=== PATIENT | male | born 1930 | race Caucasian/White ===

== ENCOUNTER → 2017-02-12 07:58 | Outpatient (CLI) | payer MEDICARE ==
[2015-05-13 07:07] VITALS: BMI 22.8
[~2017-02-12 07:58] MED LIST: BAYER CHEWABLE81 MG PO; CARDIZEM CD180 MG PO; DEXILANT60 MG PO; HYDROCODONE-APA1 TAB PO; LANOXIN125 MCG PO; MULTIPLE VITAMI1 TA1 PO; PRADAXA150 MG PO; SAW PALMETTO450 MG PO; SYNTHROID50 MCG PO; VITAMIN D31000 UNIT PO
== END | disposition home or self-care (01) ==
LOC: D.US 07:58
DX: E80.6 Other disorders of bilirubin metabolism (principal)

== ENCOUNTER 2018-02-04 16:16 | Inpatient (IN) | payer MEDICARE, OTHER ==
[~2018-02-04] VITALS: Ht 172.7 cm; Wt 70.9 kg
--- NOTE | ~2018-02-04 | HP ---
PATIENT: SAIDA QUEEN MEDICAL RECORD: [id number] ACCOUNT: [id number] LOCATION:[address] : [birth year] ADMISSION DATE: 02/04/18 HISTORY AND PHYSICAL EXAMINATION HISTORY OF PRESENT ILLNESS: This is an 87-year-old gentleman who presented to the office with a 3-day history of some chills, fever. He has had difficulty with dribbling urine. His urine has been darker. He states he has had some incontinency, frequency. Had some nausea and vomiting yesterday. He on examination was found to have signs and symptoms consistent with a UTI with possible early sepsis. White count of 20,000 with a left shift. Temperature. Urinalysis with rbc's and wbc's as well as positive nitrites and leukocytes, he is admitted for IV antibiotics and fluid hydration as well as further workup. PAST MEDICAL HISTORY: Consistent for history of hypertension, history of hypothyroidism, atrial fibrillation, hyperlipidemia, chronic kidney disease stage I. HOME MEDICATIONS: Include aspirin 81 mg daily, atorvastatin 40 mg daily, Cartia XT 180 mg daily, digoxin 125 mcg half tab daily, levothyroxine 75 mcg daily, losartan 50 mg daily, Xarelto 15 mg daily. ALLERGIES: He has no known drug allergies. SOCIAL HISTORY: He does not smoke, use alcohol or drugs. He is . FAMILY HISTORY: Mother and sister with colon cancer. Father had bladder cancer. REVIEW OF SYSTEMS: CONSTITUTIONAL: He does complain of feeling a little bit tired and lethargic. Has had fever and some chills. HEENT: Denies any visual or auditory changes. No sore throat, rhinorrhea, or dysphagia. CARDIOPULMONARY: Denies any chest pain, palpitations, orthopnea. No cough, hemoptysis. No history of COPD or asthma. GASTROINTESTINAL: Denies abdominal pain. Has had some nausea. No diarrhea. GENITOURINARY: He had been incontinency and frequency, possible hematuria. He states the urine has been dark in color. Denies any dysuria. MUSCULOSKELETAL: Some aches diffusely, but no joint swelling or erythema. NEUROLOGIC: No history of CVA, syncope or seizure. PHYSICAL EXAMINATION: VITAL SIGNS: Blood pressure 110/56, pulse of 82, respirations 16, temperature 98.5. HEENT: PERRLA, EOMI. Pharynx clear. NECK: Supple. No JVD or adenopathy. HEART: S1, S2, irregularly irregular with no murmurs or rubs. LUNGS: Clear with no rhonchi, rales or wheezing. ABDOMEN: Soft, nontender, nondistended, normoactive bowel sounds. No organomegaly. EXTREMITIES: No peripheral edema. He had a little bit of tenderness in the flanks bilaterally to palpation. NEUROLOGICAL: Grossly intact. No focal deficits. HISTORY AND PHYSICAL [id number] SAIDA QUEEN LABORATORY DATA: White count was 20,000 with an H&H of 14 and 42 with left shift. Urinalysis had 1+ ketones with elevated specific gravity, positive nitrites, positive leukocyte. He had 15 to 20 wbc's and 20 to 25 rbc's per high-power field with 2+ bacteria. ASSESSMENT AND PLAN: Urinary tract infection with early sepsis. We are going to start him on IV Rocephin and fluid hydration. We are going to faith culture including chest x-ray, UA and culture, blood cultures. We are going to obtain a CT abdomen and pelvis without contrast and continue to follow clinically. TRANSINT:[id number] Voice Confirmation ID: [id number] DOCUMENT ID: [id number] HEIDY GREGG DO at 0715 CC: [id number] DICTATION DATE: 02/04/18 1607 BRAIDED RUG MAKER: 02/04/18 1634 ADM IN [facility] [address] [id number]
[2018-02-04] MEDS ORDERED: XARELTO15 MG PO (17:26)
[2018-02-04] MEDS ORDERED: SYNTHROID75 MCG PO (17:27)
[2018-02-04] MEDS ORDERED: CARTIA XT180 MG PO (17:31)
[2018-02-04] MEDS ORDERED: COZAAR50 MG PO (17:31)
[2018-02-04 17:49] LABS: BASOPHILS 0.1 % (0-2); EOSINOPHILS 0 % (0-7); HEMATOCRIT 43.3 % (42.0-54.0); HEMOGLOBIN 15.2 g/dL (13.5-17.5); IMMATURE GRANULOCYTES 0.5 % (0-5); LYMPHOCYTES 10.5 % (15-50); MCHC 35.1 g/dL (31.0-37.0); MCV 99.8 fL (80.0-100.0); MEAN PLATELET VOLUME 10.1 fL (7.4-10.4); MONOCYTES 8.7 % (2-11); NEUTROPHILS 80.2 % (40-80); PLATELET COUNT 166 10x3/uL (130-400); RBC 4.34 10x6/uL (4.20-6.10); RDW 14.5 % (11.5-14.5); WBC 19.5 10x3/uL (4.8-10.8)
[2018-02-04 18:06] VITALS: BP 106/56; Ht 172.7 cm; Wt 70.9 kg
[2018-02-04 18:09] LABS: ALBUMIN 3.6 g/dL (3.4-5.0); ANION GAP 12.2 mmol/L (8-16); BILIRUBIN - TOTAL 2.9 mg/dL (0.2-1.3); CALCIUM 8.6 mg/dL (8.5-10.1); CARBON DIOXIDE 25.7 mmol/L (21.0-32.0); CREATININE - SERUM 2.1 mg/dL (0.6-1.3); POTASSIUM - SERUM 3.9 mmol/L (3.5-5.1); PROTEIN - SERUM 7.2 g/dL (6.4-8.2)
[2018-02-04 18:20] LABS: T4 THYROXIN - FREE 1.22 ng/dL (0.76-1.46); THYROID STIMULATING HORMONE 0.65 uIU/mL (0.36-3.74)
[2018-02-04 20:39] VITALS: BP 102/42
[2018-02-05 03:20] LABS: APPEARANCE CLOUDY (CLEAR); BILIRUBIN NEGATIVE (NEGATIVE); COLOR DK YELLOW (YELLOW); GLUCOSE NEGATIVE (NEGATIVE); KETONE NEGATIVE (NEGATIVE); NITRITE POSITIVE (NEGATIVE); PROTEIN 2+ mg/dL (NEGATIVE); UROBILINOGEN NORMAL (NORMAL)
[2018-02-05 03:22] LABS: BACTERIA MANY /hpf (NONE SEEN); EPITHELIAL CELLS 0-5 /hpf (0-5); MUCUS <1+ /lpf (NONE SEEN)
[2018-02-05 04:00] VITALS: BP 135/42
[2018-02-05 04:39] LABS: BASOPHILS 0.1 % (0-2); EOSINOPHILS 0.1 % (0-7); HEMATOCRIT 37.9 % (42.0-54.0); IMMATURE GRANULOCYTES 0.3 % (0-5); LYMPHOCYTES 17.3 % (15-50); MCHC 34.3 g/dL (31.0-37.0); MCV 99.2 fL (80.0-100.0); MEAN PLATELET VOLUME 9.9 fL (7.4-10.4); NEUTROPHILS 72.2 % (40-80); PLATELET COUNT 148 10x3/uL (130-400); RBC 3.82 10x6/uL (4.20-6.10); RDW 14.7 % (11.5-14.5); WBC 15.2 10x3/uL (4.8-10.8)
[2018-02-05 04:49] LABS: ANION GAP 8.1 mmol/L (8-16); CREATININE - SERUM 1.8 mg/dL (0.6-1.3); POTASSIUM - SERUM 4.1 mmol/L (3.5-5.1)
[2018-02-05 07:36] VITALS: BP 105/45
[2018-02-05 11:30] VITALS: BP 105/58
[2018-02-05 15:08] VITALS: BP 113/54
[2018-02-05 21:17] VITALS: BP 132/63
[2018-02-06 04:34] LABS: BASOPHILS 0.1 % (0-2); EOSINOPHILS 1.8 % (0-7); IMMATURE GRANULOCYTES 0.2 % (0-5); LYMPHOCYTES 17.5 % (15-50); MCH 33.9 pg (26.0-34.0); MCHC 34.2 g/dL (31.0-37.0); MEAN PLATELET VOLUME 10.1 fL (7.4-10.4); MONOCYTES 10.5 % (2-11); NEUTROPHILS 69.9 % (40-80); PLATELET COUNT 149 10x3/uL (130-400); RBC 3.84 10x6/uL (4.20-6.10); RDW 14.6 % (11.5-14.5)
[2018-02-06 04:41] LABS: WBC 8.6 10x3/uL (4.8-10.8)
[2018-02-06 04:48] LABS: BILIRUBIN - TOTAL 0.88 mg/dL (0.2-1.3); CALCIUM 7.6 mg/dL (8.5-10.1); CARBON DIOXIDE 26.2 mmol/L (21.0-32.0); CREATININE - SERUM 1.6 mg/dL (0.6-1.3); MAGNESIUM - SERUM 2.4 mg/dL (1.8-2.4); PHOSPHOROUS 2.4 mg/dL (2.5-4.9); POTASSIUM - SERUM 4.2 mmol/L (3.5-5.1); PROTEIN - SERUM 5.6 g/dL (6.4-8.2)
[2018-02-06 04:49] LABS: ALBUMIN 2.5 g/dL (3.4-5.0)
[2018-02-06 06:35] VITALS: BP 116/56
[2018-02-06 07:49] VITALS: BP 113/66
[2018-02-06 11:28] VITALS: BP 126/62
[2018-02-06 16:37] VITALS: BP 119/65
[2018-02-06 20:14] VITALS: BP 155/62
[2018-02-07] VITALS: BP 138/72
[2018-02-07 04:00] VITALS: BP 172/67
[2018-02-07 05:50] LABS: BASOPHILS 0.3 % (0-2); HEMATOCRIT 38.5 % (42.0-54.0); HEMOGLOBIN 13.2 g/dL (13.5-17.5); IMMATURE GRANULOCYTES 0.3 % (0-5); LYMPHOCYTES 28.3 % (15-50); MCH 34.3 pg (26.0-34.0); MCHC 34.3 g/dL (31.0-37.0); MONOCYTES 10.5 % (2-11); NEUTROPHILS 57.6 % (40-80); PLATELET COUNT 170 10x3/uL (130-400); RBC 3.85 10x6/uL (4.20-6.10); RDW 14.4 % (11.5-14.5)
[2018-02-07 05:51] LABS: WBC 6.4 10x3/uL (4.8-10.8)
[2018-02-07 06:23] LABS: ALBUMIN 2.7 g/dL (3.4-5.0); BILIRUBIN - TOTAL 0.76 mg/dL (0.2-1.3); CALCIUM 7.8 mg/dL (8.5-10.1); CARBON DIOXIDE 24.2 mmol/L (21.0-32.0); CREATININE - SERUM 1.7 mg/dL (0.6-1.3); MAGNESIUM - SERUM 2.3 mg/dL (1.8-2.4); PHOSPHOROUS 2.8 mg/dL (2.5-4.9); POTASSIUM - SERUM 4.2 mmol/L (3.5-5.1); PROTEIN - SERUM 5.8 g/dL (6.4-8.2)
[2018-02-07] MEDS ORDERED: FLOMAX0.4 MG PO (07:18)
[2018-02-07] MEDS ORDERED: CEFUROXIME250 MG PO (07:19)
[2018-02-07 08:13] VITALS: BP 139/65
== END 2018-02-07 10:30 | disposition home or self-care (01) | DRG 872 ==
LOC: D.M2 16:16
PROVIDERS: Family Medicine
DX: A41.9 Sepsis, unspecified organism (principal); N12 Tubulo-interstitial nephritis, not specified as acute or chronic; N17.9 Acute kidney failure, unspecified; I48.91 Unspecified atrial fibrillation; I12.9 Hypertensive chronic kidney disease with stage 1 through stage 4 chronic kidney disease, or unspecified chronic kidney disease; N18.1 Chronic kidney disease, stage 1; E03.9 Hypothyroidism, unspecified; E78.5 Hyperlipidemia, unspecified; K59.00 Constipation, unspecified

== ENCOUNTER → 2018-02-26 06:58 | Outpatient (CLI) | payer MEDICARE, OTHER ==
[2018-02-04 18:06] VITALS: BMI 23.6
[~2018-02-26 06:58] MED LIST changes: +CARTIA XT180 MG PO; +CEFUROXIME250 MG PO; +COZAAR50 MG PO; +FLOMAX0.4 MG PO; +SYNTHROID75 MCG PO; +XARELTO15 MG PO
== END | disposition home or self-care (01) ==
LOC: D.US 06:58
DX: R94.4 Abnormal results of kidney function studies (principal)

== ENCOUNTER → 2018-03-05 08:42 | Outpatient (CLI) | payer MEDICARE, OTHER ==
[2018-02-04 18:06] VITALS: BMI 23.6
== END | disposition home or self-care (01) ==
LOC: D.MRI 08:42
DX: N28.1 Cyst of kidney, acquired (principal)

== ENCOUNTER → 2018-08-13 15:31 | Outpatient (CLI) | payer MEDICARE ==
[2018-02-04 18:06] VITALS: BMI 23.6
== END | disposition home or self-care (01) ==
LOC: D.LABREF 15:31
PROVIDERS: ATTEND Orthopaedic Surgery
DX: M17.12 Unilateral primary osteoarthritis, left knee (principal)

== ENCOUNTER 2018-08-18 10:39 | Inpatient (IN) | payer MEDICARE ==
[~2018-08-18] VITALS: Ht 172.7 cm; Wt 73.5 kg
[2018-08-20] MEDS ORDERED: CENTRUM MEN'S1 EACH PO (11:19)
[2018-08-20] MEDS ORDERED: COUMADIN5 MG PO (11:21)
[2018-08-20] MEDS ORDERED: LIPITOR40 MG PO (11:22)
[2018-08-20 12:20] LABS: BASOPHILS 0.3 % (0-2); EOSINOPHILS 1.7 % (0-7); HEMATOCRIT 44.8 % (42.0-54.0); HEMOGLOBIN 15.5 g/dL (13.5-17.5); IMMATURE GRANULOCYTES 0.3 % (0-5); MCH 34.8 pg (26.0-34.0); MCHC 34.6 g/dL (31.0-37.0); MCV 100.4 fL (80.0-100.0); MONOCYTES 8.4 % (2-11); NEUTROPHILS 65.3 % (40-80); RBC 4.46 10x6/uL (4.20-6.10); RDW 14.8 % (11.5-14.5); WBC 8.6 10x3/uL (4.8-10.8)
[2018-08-20 12:21] LABS: PLATELET COUNT 217 10x3/uL (130-400)
[2018-08-20 12:36] LABS: ANION GAP 14.3 mmol/L (8-16); CALCIUM 8.9 mg/dL (8.5-10.1); CARBON DIOXIDE 26.9 mmol/L (21.0-32.0); CREATININE - SERUM 1.7 mg/dL (0.6-1.3); POTASSIUM - SERUM 4.2 mmol/L (3.5-5.1)
[2018-08-20 12:47] LABS: APTT 32.6 SECONDS (22.8-39.4); INR 2.09 (0.85-1.17); PROTIME 22.8 SECONDS (11.6-15.0)
[2018-08-20 13:03] LABS: APPEARANCE CLEAR (CLEAR); BILIRUBIN NEGATIVE (NEGATIVE); COLOR YELLOW (YELLOW); GLUCOSE NEGATIVE (NEGATIVE); KETONE NEGATIVE (NEGATIVE); NITRITE NEGATIVE (NEGATIVE); PROTEIN NEGATIVE (NEGATIVE); UROBILINOGEN NORMAL (NORMAL)
[2018-08-26 09:05] VITALS: BP 130/68; BMI 24.6
[2018-08-26 09:47] LABS: APTT 27.7 SECONDS (22.8-39.4); INR 1.1 (0.85-1.17); PROTIME 13.7 SECONDS (11.6-15.0)
--- NOTE | 2018-08-26 11:36 | NUR ---
PLASMA BLADE SET 6/8 BOVIE PAD RIGHT THIGH [id number] EXP 11/29/2019
[2018-08-26] MEDS ORDERED: HYDROCODON-ACE1 EAC2 PO (12:58)
[2018-08-26] MEDS ORDERED: KEFLEX500 MG PO (12:59)
[2018-08-26 14:08] VITALS: BP 138/90
[2018-08-26 16:30] VITALS: BP 110/57
[2018-08-26 19:15] VITALS: BP 138/90; BMI 24.6
--- NOTE | 2018-08-26 20:00 | NUR ---
ASSESSMENT PER FLOWSHEET. DRESSING TO LEFT KNEE C/D/I PT PLACED ON CPM. SR UP X2 CALL LIGHT WITHIN REACH. SCD LEFT LEG MARTA RT LEG. IV PATENT LEFT ARM OF 1/2NS AT 50CC'S/HR URINAL AT BEDSIDE. DENIES NEEDS.
[2018-08-26 21:05] VITALS: BP 119/58
--- NOTE | 2018-08-26 21:15 | NUR ---
MEDS GIVEN PER MAR.
--- NOTE | 2018-08-26 23:00 | NUR ---
CPM REMOVED FROM LEFT LEG. VOIDS IN URINAL.
--- NOTE | 2018-08-27 | NUR ---
EYES CLOSED RESPIRATIONS WITH EASE AND UNLABORED.
--- NOTE | 2018-08-27 03:04 | NUR ---
RESTING QUIETLY DENIES NEEDS. WILL CONTINUE PLAN OF CARE.
[2018-08-27 04:07] LABS: BASOPHILS 0 % (0-2); EOSINOPHILS 0 % (0-7); HEMOGLOBIN 12.7 g/dL (13.5-17.5); IMMATURE GRANULOCYTES 0.3 % (0-5); LYMPHOCYTES 7.4 % (15-50); MCH 33.9 pg (26.0-34.0); MCHC 34.3 g/dL (31.0-37.0); MCV 98.7 fL (80.0-100.0); MEAN PLATELET VOLUME 9.3 fL (7.4-10.4); MONOCYTES 6.3 % (2-11); PLATELET COUNT 178 10x3/uL (130-400); RBC 3.75 10x6/uL (4.20-6.10); RDW 14.2 % (11.5-14.5)
[2018-08-27 04:12] LABS: INR 1.13 (0.85-1.17)
[2018-08-27 04:20] LABS: ALBUMIN 2.9 g/dL (3.4-5.0); ANION GAP 15.2 mmol/L (8-16); BILIRUBIN - TOTAL 0.75 mg/dL (0.2-1.3); CALCIUM 8.2 mg/dL (8.5-10.1); CARBON DIOXIDE 24.1 mmol/L (21.0-32.0); CREATININE - SERUM 1.7 mg/dL (0.6-1.3); POTASSIUM - SERUM 4.3 mmol/L (3.5-5.1); PROTEIN - SERUM 6.3 g/dL (6.4-8.2)
[2018-08-27 04:43] VITALS: BP 105/72
--- NOTE | 2018-08-27 07:56 | NUR ---
PATIENT RESTING COMFORTABLY WITH CPM TO LEFT KNEE. NO COMPLAINTS OF PAIN. LEFT FOREARM PIV INFILTRATED; REMOVED, TIP INTACT.
--- NOTE | 2018-08-27 08:37 | NUR ---
20G PIV RESITED TO RIGHT FOREARM. ONE ATTEMPT. PATIENT TOERATED WELL.
[2018-08-27 08:55] VITALS: BP 128/88
[2018-08-27 11:52] VITALS: Ht 172.7 cm; Wt 73.5 kg
[2018-08-27 13:38] VITALS: BP 108/70
--- NOTE | 2018-08-27 13:46 | NUR ---
I have reviewed this patient and I concur with the Shift Assessment completed by the Licensed Practical Nurse today this shift.
--- NOTE | 2018-08-27 14:23 | MORECARE ---
CASE MANAGEMENT DISCHARGE SUMMARY PATIENT: SAIDA QUEEN UNIT: [id number] ADM DATE: 08/26/18 AGE: 88 : 31 SEX: M ROOM/BED: D.2217 AUTHOR: FIFI ARREOLA PHYSICIAN: REFERRING PHYSICIAN: SEBAS LOPEZ DO DATE OF SERVICE: 08/27/18 Discharge Plan Patient Name: SAIDA QUEEN [facility] [facility] 1930 Planned Disposition: Home Anticipated Discharge Date: Discharge Date: Expected LOS: Initial Reviewer: [email or web address] Initial Review Date: 08/26/2018 Generated: 08/27/18 3:22 pm Patient Name: SAIDA QUEEN Page 85538 at 1423 All edits/amendments must be made on the electronic document DICTATION DATE: 08/27/181421 STEEL RULE DIE MAKER APPRENTICE: SAMIR 08/27/181421 RPT#: [id number] DC DATE: STATUS: ADM IN [facility] [address] [place] [address] END OF REPORT
--- NOTE | 2018-08-27 14:33 | MORECARE ---
CASE MANAGEMENT DISCHARGE SUMMARY PATIENT: SAIDA QUEEN UNIT: [id number] ADM DATE: 08/26/18 AGE: 88 : 31 SEX: M ROOM/BED: D.2217 AUTHOR: ELBA,DOC PHYSICIAN: REFERRING PHYSICIAN: SEBAS LOPEZ DO DATE OF SERVICE: 08/27/18 Discharge Plan Patient Name: SAIDA QUEEN Facility: [facility]:[place] : 1930 Planned Disposition: Home Anticipated Discharge Date: Discharge Date: Expected LOS: Initial Reviewer: [email or web address] Initial Review Date: 08/26/2018 Generated: 08/27/18 3:32 pm Comments DCP- Discharge Planning Updated by [email or web address]: Kira Stephens on 08/27/18 1:[address] Patient Name: SAIDA QUEEN Admission Status: Elective Accout number: [id number] Admission Date: 08-26-2018 : 1930 Admission Diagnosis: Attending: SEBAS LOPEZ Current LOS: 1 Anticipated DC Date: Planned Disposition: Home Primary Insurance: MEDICARE A & B Discharge Planning Comments: CM met with patient to complete initial dc planning assessment. CM educated patient on the CM role and verbal consent given by patient to complete assessment. Patient lives at home with his where he is independent with his care at home. At discharge patient plans to return home and feels this is a safe discharge. CM discussed availability of home health, rehab services, and medical equipment. He stated that he will do OP PT at [facility]. He has a BSC and a walker that was delivered to his home. I will call and check on the CPM & schedule his OP PT appointment prior to discharge. CM will continue to follow and will assist as needed with dc plans/needs. Night Stocker: Kira Stephens DCPIA - Discharge Planning Initial Assessment Updated by [email or web address]: Kira Stephens on 08/27/18 2:25 pm * Is the patient Alert and Oriented? Yes * How many steps to enter\exit or inside your home? * PCP [facility] * Pharmacy [facility] * Preadmission Environment Home with Family * ADLs Independent * Equipment Bedside Commode Rolling Walker * List name and contact numbers for known caregivers / representatives who currently or will assist patient after discharge: ADRIENNE () [phone] * Verbal permission to speak to the caregivers and representatives has been obtained from the patient. Yes * Community resources currently utilized None * Additional services required to return to the preadmission environment? Yes * Can the patient safely return to the preadmission environment? Yes * Has this patient been hospitalized within the prior 30 days at any hospital? No Last DP export: 08/27/18 1:22 p Patient Name: SAIDA QUEEN Page 28308 at 1433 All edits/amendments must be made on the electronic document DICTATION DATE: 08/27/181431 ENVIRONMENTAL CONSERVATION OFFICER: SAMIR 08/27/181431 RPT#: [id number] DC DATE: STATUS: ADM IN [facility] [address] [place] [address] END OF REPORT
--- NOTE | 2018-08-27 14:42 | MORECARE ---
CASE MANAGEMENT DISCHARGE SUMMARY PATIENT: SAIDA QUEEN UNIT: [id number] ADM DATE: 08/26/18 AGE: 88 : 31 SEX: M ROOM/BED: D.2217 AUTHOR: ELBA,DOC PHYSICIAN: REFERRING PHYSICIAN: NILES LOPEZ DO DATE OF SERVICE: 08/27/18 Discharge Plan Patient Name: SAIDA QUEEN Facility: [facility]:[place] : 1930 Planned Disposition: Home Anticipated Discharge Date: Discharge Date: Expected LOS: Initial Reviewer: [email or web address] Initial Review Date: 08/26/2018 Generated: 08/27/18 3:42 pm Comments DCP- Discharge Planning Updated by [email or web address]: Kira Stephens on 08/27/18 1:[address] called Niles with [employer], he stated that the patient refused all DME from them and he called Dr Lopez's office and let Bere know. The patient was concerned about the cost. I sent his facesheet over to [employer] and spoke with Christie and she was going to run his insurance and see if there was going to be any out of pocket expense for a CPM. CM will continue to follow and assist with DC planning DCP- Discharge Planning Updated by [email or web address]: Kira Stephens on 08/27/18 1:[address] Patient Name: SAIDA QUEEN Admission Status: Elective Accout number: [id number] Admission Date: 08-26-2018 : 1930 Admission Diagnosis: Attending: NILES LOPEZ Current LOS: 1 Anticipated DC Date: Planned Disposition: Home Primary Insurance: MEDICARE A & B Discharge Planning Comments: CM met with patient to complete initial dc planning assessment. CM educated patient on the CM role and verbal consent given by patient to complete assessment. Patient lives at home with his where he is independent with his care at home. At discharge patient plans to return home and feels this is a safe discharge. CM discussed availability of home health, rehab services, and medical equipment. He stated that he will do OP PT at [facility]. He has a BSC and a walker that was delivered to his home. I will call and check on the CPM & schedule his OP PT appointment prior to discharge. CM will continue to follow and will assist as needed with dc plans/needs. Fruit Worker: Kira Stephens DCPIA - Discharge Planning Initial Assessment Updated by [email or web address]: Kira Stephens on 08/27/18 2:25 pm * Is the patient Alert and Oriented? Yes * How many steps to enter\exit or inside your home? * PCP [facility] * Pharmacy [facility] * Preadmission Environment Home with Family * ADLs Independent * Equipment Bedside Commode Rolling Walker * List name and contact numbers for known caregivers / representatives who currently or will assist patient after discharge: ADRIENNE () [phone] * Verbal permission to speak to the caregivers and representatives has been obtained from the patient. Yes * Community resources currently utilized None * Additional services required to return to the preadmission environment? Yes * Can the patient safely return to the preadmission environment? Yes * Has this patient been hospitalized within the prior 30 days at any hospital? No External Providers External Provider: [facility] Next Contact Date: Service Request Date: Service Type: Resolution: Reviewer: Comments: Last DP export: 08/27/18 1:32 p Patient Name: SAIDA QUEEN Page 41467 at 1442 All edits/amendments must be made on the electronic document DICTATION DATE: 08/27/18 1442 PETROL TANKER DRIVER: SAMIR 08/27/18 1442 RPT#: [id number] DC DATE: STATUS: ADM IN [facility] [address] [place] [address] END OF REPORT
[2018-08-27 16:28] VITALS: BP 103/51
--- NOTE | 2018-08-27 20:00 | NUR ---
AQSSESSMENT PER FLOWSHEET. DRESSING TO LEFT KNEE INCISION C/D/I LEG IN CPM MACHINE. MARTA HOSE ON LEFT LEG SCD ON RT LEG. VOIDS WELL IN URINAL. IV SALNE LOCKED RT FOREARM.
[2018-08-27 21:03] VITALS: BP 95/76
--- NOTE | 2018-08-27 21:17 | NUR ---
CPM REMOVED REQUESTING PAIN MED FOR A PAIN LEVEL #8 NORCO 10 MG PO GIVEN FOR PAIN COTROL REPOSITIONED IN BED. SR UP X2 CALL LIGHT WITHIN REACH GABE MAT ACTIVATED.
--- NOTE | 2018-08-27 21:17 | NUR ---
CPM REMOVED PT REQUESTING PAIN MED RATES PAIN LEVEL #8. NORCO 7.5 MG PO GIVEN FOR PAIN CONTROL. REPOATIONED IN BED GABE MAT ACTIVATED. SR UP X2 CALL LIGHT WITHIN REACH.
--- NOTE | 2018-08-28 00:21 | NUR ---
RESTING QUIETLY DENIES NEEDS.
--- NOTE | 2018-08-28 03:54 | NUR ---
VOIDS IN URINAL C/O INCISIONAL PAIN #6. NORCO 10/325MG TAB ONE PO GIVEN FOR PAIN CONTROL.
[2018-08-28 04:45] VITALS: BP 124/74
[2018-08-28 04:58] LABS: BASOPHILS 0.1 % (0-2); EOSINOPHILS 0 % (0-7); HEMOGLOBIN 11.5 g/dL (13.5-17.5); IMMATURE GRANULOCYTES 0.4 % (0-5); LYMPHOCYTES 12.5 % (15-50); MCH 33.3 pg (26.0-34.0); MCHC 33.8 g/dL (31.0-37.0); MCV 98.6 fL (80.0-100.0); MEAN PLATELET VOLUME 9.8 fL (7.4-10.4); MONOCYTES 12.3 % (2-11); NEUTROPHILS 74.7 % (40-80); PLATELET COUNT 181 10x3/uL (130-400); RBC 3.45 10x6/uL (4.20-6.10); RDW 14.7 % (11.5-14.5); WBC 10.6 10x3/uL (4.8-10.8)
[2018-08-28 05:04] LABS: PROTIME 16.8 SECONDS (11.6-15.0)
[2018-08-28 05:05] LABS: INR 1.42 (0.85-1.17)
[2018-08-28 05:10] LABS: ALBUMIN 2.6 g/dL (3.4-5.0); ANION GAP 14.2 mmol/L (8-16); BILIRUBIN - TOTAL 0.52 mg/dL (0.2-1.3); CALCIUM 7.8 mg/dL (8.5-10.1); CREATININE - SERUM 2.1 mg/dL (0.6-1.3); POTASSIUM - SERUM 4.2 mmol/L (3.5-5.1); PROTEIN - SERUM 5.7 g/dL (6.4-8.2)
--- NOTE | 2018-08-28 07:45 | NUR ---
PT REPORT RECIEVED AND CARE ASSUMED PT RESTING IN BED WITH CPM IN PLACE. CAQLL LIGHT IN REACH SIDE RAILS UP X 2
[2018-08-28 10:08] VITALS: BP 131/78
--- NOTE | 2018-08-28 11:33 | MORECARE ---
CASE MANAGEMENT DISCHARGE SUMMARY PATIENT: SAIDA QUEEN UNIT: [id number] ADM DATE: 08/26/18 AGE: 88 : 31 SEX: M ROOM/BED: D.2217 AUTHOR: ELBA,DOC PHYSICIAN: REFERRING PHYSICIAN: NILES LOPEZ DO DATE OF SERVICE: 08/28/18 Discharge Plan Patient Name: SAIDA QUEEN Facility: [facility]:[place] : 1930 Planned Disposition: Home Anticipated Discharge Date: Discharge Date: Expected LOS: Initial Reviewer: [email or web address] Initial Review Date: 08/26/2018 Generated: 08/28/18 12:33 pm Comments DCP- Discharge Planning Updated by [email or web address]: Kira Stephens on 08/27/18 1:[address] called Niles with [employer], he stated that the patient refused all DME from them and he called Dr Lopez's office and let Bere know. The patient was concerned about the cost. I sent his facesheet over to [employer] and spoke with Christie and she was going to run his insurance and see if there was going to be any out of pocket expense for a CPM. CM will continue to follow and assist with DC planning DCP- Discharge Planning Updated by [id number]: Kira Stephens on 08/27/18 1:[address] Patient Name: SAIDA QUEEN Admission Status: Elective Accout number: [id number] Admission Date: 08-26-2018 : 1930 Admission Diagnosis: Attending: NILES LOPEZ Current LOS: 1 Anticipated DC Date: Planned Disposition: Home Primary Insurance: MEDICARE A & B Discharge Planning Comments: CM met with patient to complete initial dc planning assessment. CM educated patient on the CM role and verbal consent given by patient to complete assessment. Patient lives at home with his where he is independent with his care at home. At discharge patient plans to return home and feels this is a safe discharge. CM discussed availability of home health, rehab services, and medical equipment. He stated that he will do OP PT at [facility]. He has a BSC and a walker that was delivered to his home. I will call and check on the CPM & schedule his OP PT appointment prior to discharge. CM will continue to follow and will assist as needed with dc plans/needs. Mail Sorter And Delivery: Kira Stephens DCPIA - Discharge Planning Initial Assessment Updated by [email or web address]: Kira Stephens on 08/27/18 2:25 pm * Is the patient Alert and Oriented? Yes * How many steps to enter\exit or inside your home? * PCP [facility] * Pharmacy [facility] * Preadmission Environment Home with Family * ADLs Independent * Equipment Bedside Commode Rolling Walker * List name and contact numbers for known caregivers / representatives who currently or will assist patient after discharge: ADRIENNE () [phone] * Verbal permission to speak to the caregivers and representatives has been obtained from the patient. Yes * Community resources currently utilized None * Additional services required to return to the preadmission environment? Yes * Can the patient safely return to the preadmission environment? Yes * Has this patient been hospitalized within the prior 30 days at any hospital? No External Providers External Provider: [facility] Next Contact Date: Service Request Date: Service Type: Resolution: Reviewer: Comments: Coverage Notice Reviewer: [id number] - Kira Stephens Notice Issued Date-Time: 08/28/2018 11:15 Notice Type: IM Discharge Notice Notice Delivered To: Patient Relationship to Patient: Photograph Enlarger Name: Delivery Method: HAND - Hand Delivered Jaida Days: Prior Verbal Notification: Recipient Understood Notice: Yes Recipient Signature: Yes Med Rec Note Co-signed by Attending: Coverage Notice Comment: Last DP export: 08/27/18 1:42 p Patient Name: SAIDA QUEEN Page 92593 at 1133 All edits/amendments must be made on the electronic document DICTATION DATE: 08/28/18 113 PENSION AGENT: SAMIR 08/28/18 1133 RPT#: [id number] DC DATE: STATUS: ADM IN [facility] [address] [place] [address] END OF REPORT
--- NOTE | 2018-08-28 11:49 | MORECARE ---
CASE MANAGEMENT DISCHARGE SUMMARY PATIENT: SAIDA QUEEN UNIT: [id number] ADM DATE: 08/26/18 AGE: 88 : 31 SEX: M ROOM/BED: D.2217 AUTHOR: ELBA,DOC PHYSICIAN: REFERRING PHYSICIAN: NILES LOPEZ DO DATE OF SERVICE: 08/28/18 Discharge Plan Patient Name: SAIDA QUEEN Facility: [facility]:[place] : 1930 Planned Disposition: Home Anticipated Discharge Date: Discharge Date: Expected LOS: Initial Reviewer: [email or web address] Initial Review Date: 08/26/2018 Generated: 08/28/18 12:49 pm Comments DCP- Discharge Planning Updated by [email or web address]: Kira Stephens on 08/28/18 10:[address] IMM SERVED AND EXPLAINED DCP- Discharge Planning Updated by [email or web address]: Kira Stephens on 08/28/18 10:[address] CAROLA WITH [facility] CALLED AND STATED THAT THERE WOULD MARIA G NO OUT OF POCKET FOR THE PATIENT FOR THE CPM. ARIANNE GUILLEN NOTIFIED. I ORDERED THE CPM AND IT WILL BE DELIVERED TO HIS HOME WHEN HE IS DISCHARGED. OP PT IS SET UP WITH [facility]. HE HAS AN APPOINTMENT FOR TUESDAY 08/29 @2:00PM AND FRIDAY 09/01 @ 4:00PM. I SPOKE WITH AMAURY. I FAXED ORDER AND A COPY OF THE ORDER WILL BE GIVEN TO THE PATIENT WITH HIS DISCHARGE PACKET. CM WILL CONTINUE TO FOLLOW AND ASSIST NEEDED DCP- Discharge Planning Updated by [email or web address]: Kira Stephens on 08/27/18 1:[address] called Niles with [employer], he stated that the patient refused all DME from them and he called Dr Lopez's office and let Bere know. The patient was concerned about the cost. I sent his facesheet over to [place] [phone] and spoke with Carola and she was going to run his insurance and see if there was going to be any out of pocket expense for a CPM. CM will continue to follow and assist with DC planning DCP- Discharge Planning Updated by [email or web address]: Kira Stephens on 08/27/18 1:[address] Patient Name: SAIDA QUEEN Admission Status: Elective Accout number: [id number] Admission Date: 08-26-2018 : 1930 Admission Diagnosis: Attending: NILES LOPEZ Current LOS: 1 Anticipated DC Date: Planned Disposition: Home Primary Insurance: MEDICARE A & B Discharge Planning Comments: CM met with patient to complete initial dc planning assessment. CM educated patient on the CM role and verbal consent given by patient to complete assessment. Patient lives at home with his where he is independent with his care at home. At discharge patient plans to return home and feels this is a safe discharge. CM discussed availability of home health, rehab services, and medical equipment. He stated that he will do OP PT at [facility]. He has a BSC and a walker that was delivered to his home. I will call and check on the CPM & schedule his OP PT appointment prior to discharge. CM will continue to follow and will assist as needed with dc plans/needs. Ingot Supervisor: Kira Stephens DCPIA - Discharge Planning Initial Assessment Updated by [email or web address]: Kira Stephens on 08/27/18 2:25 pm * Is the patient Alert and Oriented? Yes * How many steps to enter\exit or inside your home? * PCP [facility] * Pharmacy [facility] * Preadmission Environment Home with Family * ADLs Independent * Equipment Bedside Commode Rolling Walker * List name and contact numbers for known caregivers / representatives who currently or will assist patient after discharge: ADRIENNE () [phone] * Verbal permission to speak to the caregivers and representatives has been obtained from the patient. Yes * Community resources currently utilized None * Additional services required to return to the preadmission environment? Yes * Can the patient safely return to the preadmission environment? Yes * Has this patient been hospitalized within the prior 30 days at any hospital? No Coverage Notice Reviewer: [id number] - Kira Stephens Notice Issued Date-Time: 08/28/2018 11:15 Notice Type: IM Discharge Notice Notice Delivered To: Patient Relationship to Patient: Historiography Teacher Name: Delivery Method: HAND - Hand Delivered Jaida Days: Prior Verbal Notification: Recipient Understood Notice: Yes Recipient Signature: Yes Med Rec Note Co-signed by Attending: Coverage Notice Comment: Last DP export: 08/28/18 10:33 a Patient Name: SAIDA QUEEN Page 94064 at 1149 All edits/amendments must be made on the electronic document DICTATION DATE: 08/28/181147 MANAGER PURCHASING: SAMIR 08/28/18 114 RPT#: [id number] DC DATE: STATUS: ADM IN [facility] [address] [place] [address] END OF REPORT
--- NOTE | 2018-08-28 12:30 | NUR ---
PT WITH NO DISTRESS NOTED AT THIS TIME CALL LIGHT IN REACH SIDE RAILS UP X 2
[2018-08-28 13:37] VITALS: BP 119/56
--- NOTE | 2018-08-28 15:14 | NUR ---
I have reviewed this patient and I concur with the Shift Assessment completed by the Licensed Practical Nurse today this shift.
[2018-08-28 17:26] VITALS: BP 102/49
--- NOTE | 2018-08-28 18:05 | NUR ---
PT WITH NO DISTRESS NOTED CALL LIGHT IN REACH
--- NOTE | 2018-08-28 19:00 | NUR ---
REPORT RECEIVED AND CARE OF PT ASSUMED. PT LYING IN SUPINE POSITION WITH LEFT LEG IN CPM. IV IN RIGHT FA SALINE LOCKED. SCD ON RIGHT LEG AND MARTA HOSE ON LEFT LLE. WILL MONITOR FOR NEEDS.
--- NOTE | 2018-08-28 20:32 | NUR ---
HS MEDICATIONS GIVEN. WILL CONTINUE TO MONITOR FOR NEEDS.
[2018-08-28 20:37] VITALS: BP 107/53
--- NOTE | 2018-08-28 22:00 | NUR ---
GAVE NORCO PO PER REQUEST FOR SURGICAL PAIN IN LEFT KNEE. WILL CONTINUE TO MONITOR FOR NEEDS.
[2018-08-29 05:33] VITALS: BP 120/63
[2018-08-29 05:33] LABS: BASOPHILS 0 % (0-2); EOSINOPHILS 0.8 % (0-7); HEMATOCRIT 34.1 % (42.0-54.0); HEMOGLOBIN 11.6 g/dL (13.5-17.5); IMMATURE GRANULOCYTES 0.8 % (0-5); LYMPHOCYTES 20.3 % (15-50); MEAN PLATELET VOLUME 9.9 fL (7.4-10.4); MONOCYTES 13.7 % (2-11); NEUTROPHILS 64.4 % (40-80); PLATELET COUNT 187 10x3/uL (130-400); RBC 3.41 10x6/uL (4.20-6.10); WBC 8.8 10x3/uL (4.8-10.8)
[2018-08-29 05:38] LABS: INR 1.65 (0.85-1.17); PROTIME 18.9 SECONDS (11.6-15.0)
[2018-08-29 05:49] LABS: ALBUMIN 2.6 g/dL (3.4-5.0); ANION GAP 11.9 mmol/L (8-16); BILIRUBIN - TOTAL 0.72 mg/dL (0.2-1.3); CALCIUM 8.1 mg/dL (8.5-10.1); CARBON DIOXIDE 27.5 mmol/L (21.0-32.0); CREATININE - SERUM 2.2 mg/dL (0.6-1.3); POTASSIUM - SERUM 4.4 mmol/L (3.5-5.1); PROTEIN - SERUM 5.8 g/dL (6.4-8.2)
--- NOTE | 2018-08-29 08:45 | NUR ---
PATIENT IN BED WITH IV INTACT. NO COMPLAINTS OR SIGNS OF DISTRESS. CALL LIGHT WITHIN REACH. CPM ON AT THIS TIME.
--- NOTE | 2018-08-29 08:46 | MORECARE ---
CASE MANAGEMENT DISCHARGE SUMMARY PATIENT: SAIDA QUEEN UNIT: [id number] ADM DATE: 08/26/18 AGE: 88 : 31 SEX: M ROOM/BED: D.2217 AUTHOR: ELBA,DOC PHYSICIAN: REFERRING PHYSICIAN: NILES LOPEZ DO DATE OF SERVICE: 08/29/18 Discharge Plan Patient Name: SAIDA QUEEN Facility: [facility]:[place] : 1930 Planned Disposition: Home Anticipated Discharge Date: Discharge Date: Expected LOS: Initial Reviewer: [id number] Initial Review Date: 08/26/2018 Generated: 08/29/18 9:46 am Comments DCP- Discharge Planning Updated by [id number]: Kira Stephens on 08/29/18 7:[address] I called [facility] to let them know that the patient was still in the hospital and cancelled his PT appointment for today DCP- Discharge Planning Updated by [id number]: Kira Stephens on 08/28/18 10:[address] IMM SERVED AND EXPLAINED DCP- Discharge Planning Updated by [id number]: Kira Stephens on 08/28/18 10:[address] CAROLA WITH [facility] CALLED AND STATED THAT THERE WOULD MARIA G NO OUT OF POCKET FOR THE PATIENT FOR THE CPM. ARIANNE GUILLEN NOTIFIED. I ORDERED THE CPM AND IT WILL BE DELIVERED TO HIS HOME WHEN HE IS DISCHARGED. OP PT IS SET UP WITH SHANA. HE HAS AN APPOINTMENT FOR TUESDAY 08/29 @2:00PM AND FRIDAY 09/01 @ 4:00PM. I SPOKE WITH AMAURY. I FAXED ORDER AND A COPY OF THE ORDER WILL BE GIVEN TO THE PATIENT WITH HIS DISCHARGE PACKET. CM WILL CONTINUE TO FOLLOW AND ASSIST NEEDED DCP- Discharge Planning Updated by [id number]: Kira Stephens on 08/27/18 1:[address] called Niles with [employer], he stated that the patient refused all DME from them and he called Dr Lopez's office and let Bere know. The patient was concerned about the cost. I sent his facesheet over to [place] [id number] and spoke with Carola and she was going to run his insurance and see if there was going to be any out of pocket expense for a CPM. CM will continue to follow and assist with DC planning DCP- Discharge Planning Updated by [id number]: Kira Stephens on 08/27/18 1:[address] Patient Name: SAIDA QUEEN Admission Status: Elective Accout number: [id number] Admission Date: 08-26-2018 : 1930 Admission Diagnosis: Attending: NILES LOPEZ Current LOS: 1 Anticipated DC Date: Planned Disposition: Home Primary Insurance: MEDICARE A & B Discharge Planning Comments: CM met with patient to complete initial dc planning assessment. CM educated patient on the CM role and verbal consent given by patient to complete assessment. Patient lives at home with his where he is independent with his care at home. At discharge patient plans to return home and feels this is a safe discharge. CM discussed availability of home health, rehab services, and medical equipment. He stated that he will do OP PT at [facility]. He has a BSC and a walker that was delivered to his home. I will call and check on the CPM & schedule his OP PT appointment prior to discharge. CM will continue to follow and will assist as needed with dc plans/needs. Stockroom Supervisor: Kira Stephens DCPIA - Discharge Planning Initial Assessment Updated by [id number]: Kira Stephens on 08/27/18 2:25 pm * Is the patient Alert and Oriented? Yes * How many steps to enter\exit or inside your home? * PCP MARYSOL * [facility] * Preadmission Environment Home with Family * ADLs Independent * Equipment Bedside Commode Rolling Walker * List name and contact numbers for known caregivers / representatives who currently or will assist patient after discharge: ADRIENNE () [phone] * Verbal permission to speak to the caregivers and representatives has been obtained from the patient. Yes * Community resources currently utilized None * Additional services required to return to the preadmission environment? Yes * Can the patient safely return to the preadmission environment? Yes * Has this patient been hospitalized within the prior 30 days at any hospital? No Coverage Notice Reviewer: [id number] - Kira Stephens Notice Issued Date-Time: 08/28/2018 11:15 Notice Type: IM Discharge Notice Notice Delivered To: Patient Relationship to Patient: Tank Truck Driver Name: Delivery Method: HAND - Hand Delivered Jaida Days: Prior Verbal Notification: Recipient Understood Notice: Yes Recipient Signature: Yes Med Rec Note Co-signed by Attending: Coverage Notice Comment: Last DP export: 08/28/18 10:49 a Patient Name: SAIDA QUEEN Page [phone] at 0846 All edits/amendments must be made on the electronic document DICTATION DATE: 08/29/18845 PRACTICE MANAGER: SAMIR 08/29/18845 RPT#: [id number] DC DATE: STATUS: ADM IN [facility] [address] [place] [address] END OF REPORT
[2018-08-29 08:54] VITALS: BP 141/76
--- NOTE | 2018-08-29 11:00 | NUR ---
PATIENT IV STARTED IN LEFT ARM X STICKS. IVF STARTED ORDERED. LAST IV WAS ACCIDENTALLY PULLED OUT BY PATIENT. CATH TIP INTACT.
--- NOTE | 2018-08-29 11:41 | MORECARE ---
CASE MANAGEMENT DISCHARGE SUMMARY PATIENT: SAIDA QUEEN UNIT: [id number] ADM DATE: 08/26/18 AGE: 88 : 31 SEX: M ROOM/BED: D.2217 AUTHOR: ELBA,DOC PHYSICIAN: REFERRING PHYSICIAN: NILES LOPEZ DO DATE OF SERVICE: 08/29/18 Discharge Plan Patient Name: SAIDA QUEEN Facility: [facility]:[place] : 1930 Planned Disposition: Home Anticipated Discharge Date: Discharge Date: Expected LOS: Initial Reviewer: [id number] Initial Review Date: 08/26/2018 Generated: 08/29/18 12:41 pm Comments DCP- Discharge Planning Updated by [id number]: Kira Stephens on 08/29/18 10:[address] [facility] IN [facility] WILL DELIVER THE CPM MACHINE WHEN PATIENT IS DISCHARGED TO HIS HOME. PATIENT'S OP PT APPOINEMENT HAS BEEN SET UP FOR SATURDAY, COPY FOR PATIENT IS AT THE FLOW COORD. DESK AND ONE IS IN THE CHART. DCP- Discharge Planning Updated by [id number]: Kira Stephens on 08/29/18 7:[address] I called [facility] to let them know that the patient was still in the hospital and cancelled his PT appointment for today DCP- Discharge Planning Updated by [id number]: Kira Stephens on 08/28/18 10:[address] IMM SERVED AND EXPLAINED DCP- Discharge Planning Updated by [id number]: Kira Stephens on 08/28/18 10:[address] CAROLA WITH [facility] CALLED AND STATED THAT THERE WOULD MARIA G NO OUT OF POCKET FOR THE PATIENT FOR THE CPM. ARIANNE GUILLEN NOTIFIED. I ORDERED THE CPM AND IT WILL BE DELIVERED TO HIS HOME WHEN HE IS DISCHARGED. OP PT IS SET UP WITH SHANA. HE HAS AN APPOINTMENT FOR TUESDAY 08/29 @2:00PM AND FRIDAY 09/01 @ 4:00PM. I SPOKE WITH AMAURY. I FAXED ORDER AND A COPY OF THE ORDER WILL BE GIVEN TO THE PATIENT WITH HIS DISCHARGE PACKET. CM WILL CONTINUE TO FOLLOW AND ASSIST NEEDED DCP- Discharge Planning Updated by [id number]: Kira Stephens on 08/27/18 1:[address] called Niles with [employer], he stated that the patient refused all DME from them and he called Dr Lopez's office and let Bere know. The patient was concerned about the cost. I [facility] and spoke with Carola and she was going to run his insurance and see if there was going to be any out of pocket expense for a CPM. CM will continue to follow and assist with DC planning DCP- Discharge Planning Updated by [id number]: Kira Stephens on 08/27/18 1:[address] Patient Name: SAIDA QUEEN Admission Status: Elective Accout number: [id number] Admission Date: 08-26-2018 : 1930 Admission Diagnosis: Attending: NILES LOPEZ Current LOS: 1 Anticipated DC Date: Planned Disposition: Home Primary Insurance: MEDICARE A & B Discharge Planning Comments: CM met with patient to complete initial dc planning assessment. CM educated patient on the CM role and verbal consent given by patient to complete assessment. Patient lives at home with his where he is independent with his care at home. At discharge patient plans to return home and feels this is a safe discharge. CM discussed availability of home health, rehab services, and medical equipment. He stated that he will do OP PT at [facility]. He has a BSC and a walker that was delivered to his home. I will call and check on the CPM & schedule his OP PT appointment prior to discharge. CM will continue to follow and will assist as needed with dc plans/needs. Can Cutter: Kira Stephens DCPIA - Discharge Planning Initial Assessment Updated by [id number]: Kira Stephens on 08/27/18 2:25 pm * Is the patient Alert and Oriented? Yes * How many steps to enter\exit or inside your home? * PCP MARYSOL * [facility] * Preadmission Environment Home with Family * ADLs Independent * Equipment Bedside Commode Rolling Walker * List name and contact numbers for known caregivers / representatives who currently or will assist patient after discharge: ADRIENNE () [phone] * Verbal permission to speak to the caregivers and representatives has been obtained from the patient. Yes * Community resources currently utilized None * Additional services required to return to the preadmission environment? Yes * Can the patient safely return to the preadmission environment? Yes * Has this patient been hospitalized within the prior 30 days at any hospital? No Coverage Notice Reviewer: [id number] - Kira Stephens Notice Issued Date-Time: 08/28/2018 11:15 Notice Type: IM Discharge Notice Notice Delivered To: Patient Relationship to Patient: Chemical Detection Expert Name: Delivery Method: HAND - Hand Delivered Jaida Days: Prior Verbal Notification: Recipient Understood Notice: Yes Recipient Signature: Yes Med Rec Note Co-signed by Attending: Coverage Notice Comment: Last DP export: 08/29/18 7:46 a Patient Name: SAIDA QUEEN Page [phone] at 1141 All edits/amendments must be made on the electronic document DICTATION DATE: 08/29/18 114 ALPINE GUIDE: SAMIR 08/29/18 1140 RPT#: [id number] DC DATE: STATUS: ADM IN [facility] [address] [place] [address] END OF REPORT
[2018-08-29 12:11] VITALS: BP 141/74
[2018-08-29 16:58] VITALS: BP 133/59
--- NOTE | 2018-08-29 18:00 | NUR ---
ASSSISTED TO BR FOR BM. PATIENT DID OK WITH X 1 ASSIST. CALL LIGHT WITHIN REACH.
--- NOTE | 2018-08-29 18:15 | NUR ---
PATIENT BACK TO BED WITH BRICK MASON. CPM PLACED ON. IV INTACT. CALL LIGHT WITHIN REACH.
--- NOTE | 2018-08-29 19:15 | NUR ---
RCEIVED CARE FROM DAY NURSE. LYING IN BED WATCHING TV. CPM IN PLACE. CALL LIGHT AT SIDE. IV SL TO LEFT FA. REPORTS NO NEEDS AT THIS TIME.
[2018-08-29 20:00] VITALS: BP 134/54
--- NOTE | 2018-08-29 20:45 | NUR ---
REQUEST CPM TO BE REMOVED AT THIS TIME.
[2018-08-30] VITALS: BP 158/69
--- NOTE | 2018-08-30 02:14 | NUR ---
I have reviewed this patient and I concur with the Shift Assessment completed by the Licensed Practical Nurse today this shift.
[2018-08-30 03:00] VITALS: BP 149/61
[2018-08-30 05:44] LABS: BASOPHILS 0.2 % (0-2); EOSINOPHILS 2.3 % (0-7); HEMATOCRIT 36.9 % (42.0-54.0); HEMOGLOBIN 12.6 g/dL (13.5-17.5); LYMPHOCYTES 22.6 % (15-50); MCH 34.3 pg (26.0-34.0); MCHC 34.1 g/dL (31.0-37.0); MCV 100.5 fL (80.0-100.0); MEAN PLATELET VOLUME 9.8 fL (7.4-10.4); MONOCYTES 13.1 % (2-11); NEUTROPHILS 60.8 % (40-80); PLATELET COUNT 202 10x3/uL (130-400); RBC 3.67 10x6/uL (4.20-6.10); RDW 14.6 % (11.5-14.5); WBC 8.2 10x3/uL (4.8-10.8)
[2018-08-30 05:52] LABS: INR 1.85 (0.85-1.17); PROTIME 20.7 SECONDS (11.6-15.0)
[2018-08-30 05:58] LABS: ALBUMIN 2.6 g/dL (3.4-5.0); ANION GAP 11.8 mmol/L (8-16); BILIRUBIN - TOTAL 1.25 mg/dL (0.2-1.3); CALCIUM 8.4 mg/dL (8.5-10.1); CREATININE - SERUM 2.1 mg/dL (0.6-1.3); POTASSIUM - SERUM 4.8 mmol/L (3.5-5.1); PROTEIN - SERUM 6.1 g/dL (6.4-8.2)
--- NOTE | 2018-08-30 06:00 | NUR ---
PLACED ON CPM
--- NOTE | 2018-08-30 08:00 | NUR ---
MORNING ASSESSMENT COMPLETE. SEE ASSESSMENT FLOWSHEET FOR FURTHER DETAILS. PT LYING IN BED AAO X4 TO PERSON, PLACE, TIME, AND SITUATION. DENIES NEEDS AT THIS TIME. ON CPM- WILL GET OFF @ 0900. CL IN REACH
[2018-08-30 09:57] VITALS: BP 121/54
[2018-08-30 12:47] VITALS: BP 174/63
[2018-08-30 18:14] VITALS: BP 134/67
--- NOTE | 2018-08-30 19:15 | NUR ---
RECEIVED CARE FROM DAY NURSE. SITTING UP IN BED WITH CPM IN PLACE. REPORTS NO NEEDS AT THIS TIME. CALL LIGHT AT SIDE. IV INFUSING PER ORDER TO LEFT FA.
--- NOTE | 2018-08-30 20:45 | NUR ---
CPM REMOVED AND MARTA FROM LEFT LEG REMOVED. SCD ON RIGHT LEG AT THIS TIME.
[2018-08-30 21:18] VITALS: BP 124/68
[2018-08-31 00:48] VITALS: BP 138/75
[2018-08-31 04:50] VITALS: BP 125/64
[2018-08-31 05:15] LABS: BASOPHILS 0.3 % (0-2); EOSINOPHILS 3.1 % (0-7); HEMATOCRIT 37.1 % (42.0-54.0); HEMOGLOBIN 12.3 g/dL (13.5-17.5); IMMATURE GRANULOCYTES 0.9 % (0-5); LYMPHOCYTES 20.8 % (15-50); MCH 33.1 pg (26.0-34.0); MCHC 33.2 g/dL (31.0-37.0); MCV 99.7 fL (80.0-100.0); MEAN PLATELET VOLUME 9.7 fL (7.4-10.4); MONOCYTES 14.3 % (2-11); NEUTROPHILS 60.6 % (40-80); PLATELET COUNT 245 10x3/uL (130-400); RBC 3.72 10x6/uL (4.20-6.10); RDW 14.5 % (11.5-14.5); WBC 6.8 10x3/uL (4.8-10.8)
[2018-08-31 05:17] LABS: INR 2.02 (0.85-1.17); PROTIME 22.2 SECONDS (11.6-15.0)
[2018-08-31 05:44] LABS: ALBUMIN 2.4 g/dL (3.4-5.0); ANION GAP 11.5 mmol/L (8-16); BILIRUBIN - TOTAL 1.02 mg/dL (0.2-1.3); CARBON DIOXIDE 25.6 mmol/L (21.0-32.0); CREATININE - SERUM 2.1 mg/dL (0.6-1.3); POTASSIUM - SERUM 4.1 mmol/L (3.5-5.1)
--- NOTE | 2018-08-31 06:45 | NUR ---
CPM PLACED AND MARTA HOSE PUT BACK ON.
--- NOTE | 2018-08-31 08:30 | NUR ---
MORNING ASSESSMENT COMPLETE. SEE ASSESSMENT FLOWSHEET FOR FURTHER DETAILS. PT LYING IN BED AAO X4 TO PERSON, PLACE, TIME, AND SITUATION. DENIES NEEDS AT THIS TIME. CL IN REACH. SIDE RAILS UP X3 FOR PATIENT SAEFTY. BED IN LOWEST POSITION
[2018-08-31 09:45] VITALS: BP 145/71
--- NOTE | 2018-08-31 10:20 | MORECARE ---
CASE MANAGEMENT DISCHARGE SUMMARY PATIENT: SAIDA QUEEN UNIT: [id number] ADM DATE: 08/26/18 AGE: 88 : 31 SEX: M ROOM/BED: D.2217 AUTHOR: ELBA,DOC PHYSICIAN: REFERRING PHYSICIAN: SEBAS LOPEZ DO DATE OF SERVICE: 08/31/18 Discharge Plan Patient Name: SAIDA QUEEN Facility: [facility]:[place] : 1930 Planned Disposition: Home Anticipated Discharge Date: Discharge Date: Expected LOS: Initial Reviewer: [id number] Initial Review Date: 08/26/2018 Generated: 08/31/18 11:19 am Comments DCP- Discharge Planning Updated by [id number]: Stephenie Tohrnton on 08/31/18 9:[address] TC TO [facility] TO ADVISE OF DISCHARGE FOR DELIVERY OF CPM . AWAIT CB FROM [facility]. DCP- Discharge Planning Updated by [id number]: Kira Stephens on 08/29/18 10:[address] [facility] WILL DELIVER THE CPM MACHINE WHEN PATIENT IS DISCHARGED TO HIS HOME. PATIENT'S OP PT APPOINEMENT HAS BEEN SET UP FOR SATURDAY, COPY FOR PATIENT IS AT THE FLOW COORD. DESK AND ONE IS IN THE CHART. DCP- Discharge Planning Updated by [email or web address]: Kira Stephens on 08/29/18 7:[address] I called Shana to let them know that the patient was still in the hospital and cancelled his PT appointment for today DCP- Discharge Planning Updated by [id number]: Kira Stephens on 08/28/18 10:[address] IMM SERVED AND EXPLAINED DCP- Discharge Planning Updated by [id number]: Kira Stephens on 08/28/18 10:[address] CHRISTIE WITH [facility] CALLED AND STATED THAT THERE WOULD MARIA G NO OUT OF POCKET FOR THE PATIENT FOR THE CPM. ARIANNE GUILLEN NOTIFIED. I ORDERED THE CPM AND IT WILL BE DELIVERED TO HIS HOME WHEN HE IS DISCHARGED. OP PT IS SET UP WITH SHANA. HE HAS AN APPOINTMENT FOR TUESDAY 08/29 @2:00PM AND FRIDAY 09/01 @ 4:00PM. I SPOKE WITH AMAURY. I FAXED ORDER AND A COPY OF THE ORDER WILL BE GIVEN TO THE PATIENT WITH HIS DISCHARGE PACKET. CM WILL CONTINUE TO FOLLOW AND ASSIST NEEDED DCP- Discharge Planning Updated by [id number]: iKra Stephens on 08/27/18 1:[address] called Sebas with [employer], he stated that the patient refused all DME from them and he called Dr Lopez's office and let Bere know. The patient was concerned about the cost. I sent his facesheet over to [facility] and spoke with Christie and she was going to run his insurance and see if there was going to be any out of pocket expense for a CPM. CM will continue to follow and assist with DC planning DCP- Discharge Planning Updated by [id number]: Kira Stephens on 08/27/18 1:[address] Patient Name: SAIDA QUEEN Admission Status: Elective Accout number: [id number] Admission Date: 08-26-2018 : 1930 Admission Diagnosis: Attending: SEBAS LOPEZ Current LOS: 1 Anticipated DC Date: Planned Disposition: Home Primary Insurance: MEDICARE A & B Discharge Planning Comments: CM met with patient to complete initial dc planning assessment. CM educated patient on the CM role and verbal consent given by patient to complete assessment. Patient lives at home with his where he is independent with his care at home. At discharge patient plans to return home and feels this is a safe discharge. CM discussed availability of home health, rehab services, and medical equipment. He stated that he will do OP PT at [facility]. He has a BSC and a walker that was delivered to his home. I will call and check on the CPM & schedule his OP PT appointment prior to discharge. CM will continue to follow and will assist as needed with dc plans/needs. Truck Repair Service Estimator: Kira Stephens DCPIA - Discharge Planning Initial Assessment Updated by [email or web address]: Kira Stephens on 08/27/18 2:25 pm * Is the patient Alert and Oriented? Yes * How many steps to enter\exit or inside your home? * PCP MARYSOL * [facility] * Preadmission Environment Home with Family * ADLs Independent * Equipment Bedside Commode Rolling Walker * List name and contact numbers for known caregivers / representatives who currently or will assist patient after discharge: ADRIENNE () [phone] * Verbal permission to speak to the caregivers and representatives has been obtained from the patient. Yes * Community resources currently utilized None * Additional services required to return to the preadmission environment? Yes * Can the patient safely return to the preadmission environment? Yes * Has this patient been hospitalized within the prior 30 days at any hospital? No Coverage Notice Reviewer: [id number] Alicia Stephens Notice Issued Date-Time: 08/28/2018 11:15 Notice Type: IM Discharge Notice Notice Delivered To: Patient Relationship to Patient: Pouncing Machine Operator Name: Delivery Method: HAND - Hand Delivered Jaida Days: Prior Verbal Notification: Recipient Understood Notice: Yes Recipient Signature: Yes Med Rec Note Co-signed by Attending: Coverage Notice Comment: Last DP export: 08/29/18 10:41 a Patient Name: SAIDA QUEEN Page [phone] at 1020 All edits/amendments must be made on the electronic document DICTATION DATE: 08/31/18 1019 CRITICAL CARE NURSE SPECIALIST: SAMIR 08/31/18 1019 RPT#: [id number] DC DATE: STATUS: ADM IN [facility] [address] [place] [address] END OF REPORT
--- NOTE | 2018-08-31 10:32 | MORECARE ---
CASE MANAGEMENT DISCHARGE SUMMARY PATIENT: SAIDA QUEEN UNIT: [id number] ADM DATE: 08/26/18 AGE: 88 : 31 SEX: M ROOM/BED: D.2217 AUTHOR: ELBA,DOC PHYSICIAN: REFERRING PHYSICIAN: SEBAS LOPEZ DO DATE OF SERVICE: 08/31/18 Discharge Plan Patient Name: SAIDA QUEEN Facility: [facility]:[place] : 1930 Planned Disposition: Home Anticipated Discharge Date: Discharge Date: Expected LOS: Initial Reviewer: [id number] Initial Review Date: 08/26/2018 Generated: 08/31/18 11:32 am Comments DCP- Discharge Planning Updated by [id number]: Stephenie Thornton on 08/31/18 9:[address] RECEIVED CALL BACK FROM AMRIT OLEA, AT [facility] [place]. ADVISED OF DISCHARGE. LEFTY PROVIDED HIS CELL PHONE NUMBER FOR THE PATIENT TO CALL WHEN HE ARRIVES HOME. NADIA PROVIDED THE PHONE NUMBER FOR THE NURSE TO GIVE THE PATIENT WITH HIS DISCHARGE PAPERWORK. DCP- Discharge Planning Updated by [id number]: Stephenie Thornton on 08/31/18 9:[address] TC TO [facility] DME TO ADVISE OF DISCHARGE FOR DELIVERY OF CPM . AWAIT CB FROM STAKE DR[employer] MAP CLERK. DCP- Discharge Planning Updated by [id number]: Kira Stephens on 08/29/18 10:[address] [facility] 1 IN [facility] WILL DELIVER THE CPM MACHINE WHEN PATIENT IS DISCHARGED TO HIS HOME. PATIENT'S OP PT APPOINEMENT HAS BEEN SET UP FOR SATURDAY, COPY FOR PATIENT IS AT THE FLOW COORD. DESK AND ONE IS IN THE CHART. DCP- Discharge Planning Updated by [id number]: Kira Stephens on 08/29/18 7:[address] I called Lucas and [facility]avan to let them know that the patient was still in the hospital and cancelled his PT appointment for today DCP- Discharge Planning Updated by [id number]: Kira Stephens on 08/28/18 10:[address] IMM SERVED AND EXPLAINED DCP- Discharge Planning Updated by [id number]: Kira Stephens on 08/28/18 10:[address] CHRISTIE WITH [facility] CALLED AND STATED THAT THERE WOULD MARIA G NO OUT OF POCKET FOR THE PATIENT FOR THE CPM. ARIANNE GUILLEN NOTIFIED. I ORDERED THE CPM AND IT WILL BE DELIVERED TO HIS HOME WHEN HE IS DISCHARGED. OP PT IS SET UP WITH [facility]. HE HAS AN APPOINTMENT FOR TUESDAY 08/29 @2:00PM AND FRIDAY 09/01 @ 4:00PM. I SPOKE WITH AMAURY. I FAXED ORDER AND A COPY OF THE ORDER WILL BE GIVEN TO THE PATIENT WITH HIS DISCHARGE PACKET. CM WILL CONTINUE TO FOLLOW AND ASSIST NEEDED DCP- Discharge Planning Updated by [email or web address]: Kira Stephens on 08/27/18 1:[address] called Sebas with [employer], he stated that the patient refused all DME from them and he called Dr Lopez's office and let Bere know. The patient was concerned about the cost. I sent his facesheet over to [place] [address] and spoke with Christie and she was going to run his insurance and see if there was going to be any out of pocket expense for a CPM. CM will continue to follow and assist with DC planning DCP- Discharge Planning Updated by [id number]: Kira Stephens on 08/27/18 1:[address] Patient Name: SAIDA QUEEN Admission Status: Elective Accout number: [id number] Admission Date: 08-26-2018 : 1930 Admission Diagnosis: Attending: SEBAS LOPEZ Current LOS: 1 Anticipated DC Date: Planned Disposition: Home Primary Insurance: MEDICARE A & B Discharge Planning Comments: CM met with patient to complete initial dc planning assessment. CM educated patient on the CM role and verbal consent given by patient to complete assessment. Patient lives at home with his where he is independent with his care at home. At discharge patient plans to return home and feels this is a safe discharge. CM discussed availability of home health, rehab services, and medical equipment. He stated that he will do OP PT at [place]. He has a BSC and a walker that was delivered to his home. I will call and check on the CPM & schedule his OP PT appointment prior to discharge. CM will continue to follow and will assist as needed with dc plans/needs. Urologic Surgeon: Kira Stephens DCPIA - Discharge Planning Initial Assessment Updated by [id number]: Kira Stephens on 08/27/18 2:25 pm * Is the patient Alert and Oriented? Yes * How many steps to enter\exit or inside your home? * PCP MARYSOL * Pharmacy [facility] * Preadmission Environment Home with Family * ADLs Independent * Equipment Bedside Commode Rolling Walker * List name and contact numbers for known caregivers / representatives who currently or will assist patient after discharge: ADRIENNE () [phone] * Verbal permission to speak to the caregivers and representatives has been obtained from the patient. Yes * Community resources currently utilized None * Additional services required to return to the preadmission environment? Yes * Can the patient safely return to the preadmission environment? Yes * Has this patient been hospitalized within the prior 30 days at any hospital? No Coverage Notice Reviewer: [id number] - Kira Stephens Notice Issued Date-Time: 08/28/2018 11:15 Notice Type: IM Discharge Notice Notice Delivered To: Patient Relationship to Patient: Warehouse Engineer Name: Delivery Method: HAND - Hand Delivered Jaida Days: Prior Verbal Notification: Recipient Understood Notice: Yes Recipient Signature: Yes Med Rec Note Co-signed by Attending: Coverage Notice Comment: Last DP export: 08/31/18 9:19 a Patient Name: SAIDA QUEEN Page 96196 at 1032 All edits/amendments must be made on the electronic document DICTATION DATE: 08/31/18 1032 HEART NURSE: SAMIR 08/31/18 1032 RPT#: [id number] DC DATE: STATUS: ADM IN [facility] [address] [place] [address] END OF REPORT
--- NOTE | 2018-08-31 11:51 | NUR ---
WENT OVER ALL D/C INSTRUCTIONS. DAUGHTER AT BEDSIDE. PT STATES UNDERSTANDING. DENIES FURTHER NEEDS.
--- NOTE | 2018-08-31 11:52 | NUR ---
LEFT FLOOR VIA W/C WITH MY ASSISTANCE
--- NOTE | 2018-09-01 07:57 | OP ---
PATIENT NAME: SAIDA BARAHONA MEDICAL RECORD: [id number] :32 LOCATION:D[id number] ADMISSION DATE:08/26/18 SURGEON: NILES LOPEZ DO DATE OF OPERATION: 08/26/2018 PROCEDURE PERFORMED: Left total knee arthroplasty. PREOPERATIVE DIAGNOSIS: Left knee osteoarthritis. POSTOPERATIVE DIAGNOSIS: Left knee osteoarthritis. INDICATIONS: Mr. Barahona is an 88-year-old male who has tried all manners of nonoperative management for his left knee arthritis. He has tried injections, home physical therapy, and he is tired of it affecting his activities of daily living. He would like something done surgically to fix it. He was informed of risks and benefits of the total knee including infection, bleeding, damage to nerves and vessels, need for further surgery, fracture, DVT, blood clot to the lung. He was okay with that and signed the consent. SURGEON: Niles Lopez DO DESCRIPTION OF PROCEDURE: The patient received a block by anesthesia in the preoperative area, taken to the operative suite, laid in supine position, given general anesthetic and intubated, and LMA was placed. The patient was given 2 grams of Ancef and 80 mg of gentamicin preoperatively. The left lower extremity was then prepped and draped in sterile fashion and time-out was performed. Everyone was in agreement with correct side, site, patient, and procedure. Incision was then marked out and covered with Ioban on the anterior knee. Incision was then began over the marked out incision over the anterior midline of the knee. Careful dissection was made down to the capsule itself. A fresh #10 blade was used to go through the capsule to do medial parapatellar capsulotomy. The fat pad was partially removed at that time. The patella was everted and milled down to accommodate a 34 three-peg patella. The knee was then flexed up and an intramedullary canal was entered with a drill. The distal femur cutting guide was then placed through that and pinned into place in the femur. Distal femur was cut. The tibia was then exposed and the proximal tibia was cut as well through the guide. The knee was then brought out to extension and a lamina accountant certified public was used to open up the knee. Any bone that was left after cutting the tibia was removed at that time as well as the menisci. Bleeding was coagulated with Aquamantys at that time and throughout the procedure. Once the tibia had been cut, the extension block was put in and it fit well, 10 extension block. The femur was then flexed up and measured to be 65. The formal cutting block was then put on the femur and it was cut. The 65 trial was then put on and a tibial tray was floated in with 10 poly. No rotation was marked. This was removed and patella was drilled for the implant and then the femur lug holes were drilled. The femur trial was then removed. The tibia was exposed and seen to be 71 for size. This was punched, drilled, and irrigated thoroughly and then cement was placed on the tibia and on the implant. It was packed into place and all the excess cement was removed. The femur was press fit on the implant, 65 femur. Then, a poly was put in between them. The knee was brought to an extension and the patella was exposed and cemented on the 34 three-peg patella. The smith was left on as the cement dried and the excess cement was removed. The knee was thoroughly irrigated at that time. Once the cement had dried, the knee was ranged and a 12 poly was put in. This fit very well and went with a 12 anterior stabilized E-poly, fit very OPERATIVE REPORT [id number] SAIDA BARAHONA well. The knee ranged very well and the patella tracked well. The knee was then irrigated and the locking mechanism was put on the tibial tray. The Surgicel beads and tobramycin and vancomycin powder were used at that time in the gutters. The capsule was then closed with #2 Ethibond in a [id number] fashion and the capsule was irrigated in 2-0 Vicryl in inverted interrupted fashion on the skin. ZipLine was placed on the skin. Adaptic, 4 x 4s, ABD, Webril, Hank wrap, and MARTA hose stocking were placed up to the knee. The patient was awakened and taken to recovery in stable condition. BLOOD LOSS: Approximately 200 mL. COMPLICATIONS: None. TRANSINT:[id number] Voice Confirmation ID: [id number] DOCUMENT ID: [id number] NILES LOPEZ DO at 0757 CC: [id number] DICTATION DATE: 08/26/18 1301 BOTTOM TURNING LATHE TENDER: 08/26/18 1427 DIS IN 08/31/18 [facility] [address] [place] [address]
--- NOTE | 2018-09-01 13:00 | MORECARE ---
CASE MANAGEMENT DISCHARGE SUMMARY PATIENT: SAIDA QUEEN UNIT: [id number] ADM DATE: 08/26/18 AGE: 88 : 31 SEX: M ROOM/BED: D.2217 AUTHOR: ELBA,DOC PHYSICIAN: REFERRING PHYSICIAN: SEBAS LOPEZ DO DATE OF SERVICE: 09/01/18 Discharge Plan Patient Name: SAIDA QUEEN Facility: [facility]:[place] : 1930 Planned Disposition: Home Anticipated Discharge Date: Discharge Date: 08/31/2018 Expected LOS: 0 Initial Reviewer: [email or web address] Initial Review Date: 08/26/2018 Generated: 09/01/18 1:59 pm Comments DCP- Discharge Planning Updated by [email or web address]: Stephenie Thornton on 08/31/18 9:[address] RECEIVED CALL BACK FROM AMRIT OLEA, AT [facility]. ADVISED OF DISCHARGE. LEFTY PROVIDED HIS CELL PHONE NUMBER FOR THE PATIENT TO CALL WHEN HE ARRIVES HOME. NADIA PROVIDED THE PHONE NUMBER FOR THE NURSE TO GIVE THE PATIENT WITH HIS DISCHARGE PAPERWORK. DCP- Discharge Planning Updated by [email or web address]: Stephenie Thornton on 08/31/18 9:[address] TC TO [facility] TO ADVISE OF DISCHARGE FOR DELIVERY OF CPM . AWAIT CB FROM PUBLIC ADDRESS ANNOUNCER FILM DEVELOPER. DCP- Discharge Planning Updated by [email or web address]: Kira Stephens on 08/29/18 10:[address] [facility] IN [facility] WILL DELIVER THE CPM MACHINE WHEN PATIENT IS DISCHARGED TO HIS HOME. PATIENT'S OP PT APPOINEMENT HAS BEEN SET UP FOR SATURDAY, COPY FOR PATIENT IS AT THE FLOW COORD. DESK AND ONE IS IN THE CHART. DCP- Discharge Planning Updated by [email or web address]: Kira Stephens on 08/29/18 7:[address] I called [facility] to let them know that the patient was still in the hospital and cancelled his PT appointment for today DCP- Discharge Planning Updated by [email or web address]: Kira Stephens on 08/28/18 10:[address] IMM SERVED AND EXPLAINED DCP- Discharge Planning Updated by [email or web address]: Kira Stephens on 08/28/18 10:[address] CHRISTIE WITH [facility] CALLED AND STATED THAT THERE WOULD MARIA G NO OUT OF POCKET FOR THE PATIENT FOR THE CPM. ARIANNE GUILLEN NOTIFIED. I ORDERED THE CPM AND IT WILL BE DELIVERED TO HIS HOME WHEN HE IS DISCHARGED. OP PT IS SET UP WITH [facility]. HE HAS AN APPOINTMENT FOR TUESDAY 08/29 @2:00PM AND FRIDAY 09/01 @ 4:00PM. I SPOKE WITH AMAURY. I FAXED ORDER AND A COPY OF THE ORDER WILL BE GIVEN TO THE PATIENT WITH HIS DISCHARGE PACKET. CM WILL CONTINUE TO FOLLOW AND ASSIST NEEDED DCP- Discharge Planning Updated by [email or web address]: Kira Stephens on 08/27/18 1:[address] called Sebas with [facility], he stated that the patient refused all DME from them and he called Dr Lopez's office and let Bere know. The patient was concerned about the cost. I sent his facesheet over to [place] [id number] and spoke with Christie and she was going to run his insurance and see if there was going to be any out of pocket expense for a CPM. CM will continue to follow and assist with DC planning DCP- Discharge Planning Updated by [email or web address]: Kira Stephens on 08/27/18 1:[address] Patient Name: SAIDA QUEEN Admission Status: Elective Accout number: [id number] Admission Date: 08-26-2018 : 1930 Admission Diagnosis: Attending: SEBAS LOPEZ Current LOS: 1 Anticipated DC Date: Planned Disposition: Home Primary Insurance: MEDICARE A & B Discharge Planning Comments: CM met with patient to complete initial dc planning assessment. CM educated patient on the CM role and verbal consent given by patient to complete assessment. Patient lives at home with his where he is independent with his care at home. At discharge patient plans to return home and feels this is a safe discharge. CM discussed availability of home health, rehab services, and medical equipment. He stated that he will do OP PT at [facility]. He has a BSC and a walker that was delivered to his home. I will call and check on the CPM & schedule his OP PT appointment prior to discharge. CM will continue to follow and will assist as needed with dc plans/needs. Pantry Chef: Kira Stephens DCPIA - Discharge Planning Initial Assessment Updated by [email or web address]: Kira Stephens on 08/27/18 2:25 pm * Is the patient Alert and Oriented? Yes * How many steps to enter\exit or inside your home? * PCP [facility] * Pharmacy [facility] * Preadmission Environment Home with Family * ADLs Independent * Equipment Bedside Commode Rolling Walker * List name and contact numbers for known caregivers / representatives who currently or will assist patient after discharge: ADRIENNE () [phone] * Verbal permission to speak to the caregivers and representatives has been obtained from the patient. Yes * Community resources currently utilized None * Additional services required to return to the preadmission environment? Yes * Can the patient safely return to the preadmission environment? Yes * Has this patient been hospitalized within the prior 30 days at any hospital? No Coverage Notice Reviewer: [id number] - Kira Stephens Notice Issued Date-Time: 08/28/2018 11:15 Notice Type: IM Discharge Notice Notice Delivered To: Patient Relationship to Patient: Trend Investigator Name: Delivery Method: HAND - Hand Delivered Jaida Days: Prior Verbal Notification: Recipient Understood Notice: Yes Recipient Signature: Yes Med Rec Note Co-signed by Attending: Coverage Notice Comment: Last DP export: 08/31/18 9:32 a Patient Name: SAIDA QUEEN Page [id number] at 1300 All edits/amendments must be made on the electronic document DICTATION DATE: 09/01/181258 MARKETING PROJECT SPECIALIST: SAMIR 09/01/18 1259 RPT#: [id number] [place] DATE:08/31/18 STATUS: DIS IN [facility] [address] [place] [address] END OF REPORT
== END 2018-08-31 13:04 | disposition home or self-care (01) | DRG 470 ==
LOC: D.SDCHOLD 08-25 10:00 → D.MS 08-26 08:40 → D.SDCHOLD 08-26 08:40 → D.MS 08-26 14:07
PROVIDERS: Anesthesiology; Emergency Medicine; ADMIT Orthopaedic Surgery; ATTEND Orthopaedic Surgery
PROC: 0SRD0J9 Replacement of Left Knee Joint with Synthetic Substitute, Cemented, Open Approach (ICD-10-PCS; principal; 2018-08-26 11:00)
DX: M17.12 Unilateral primary osteoarthritis, left knee (principal); D62 Acute posthemorrhagic anemia; I10 Essential (primary) hypertension; I25.10 Atherosclerotic heart disease of native coronary artery without angina pectoris; I48.91 Unspecified atrial fibrillation; E03.9 Hypothyroidism, unspecified; Z87.891 Personal history of nicotine dependence; I25.5 Ischemic cardiomyopathy

== ENCOUNTER → 2018-11-13 14:36 | Outpatient (CLI) | payer MEDICARE ==
[2018-08-27 11:52] VITALS: BMI 24.6
[~2018-11-13 14:36] MED LIST changes: +CENTRUM MEN'S1 EACH PO; +COUMADIN5 MG PO; +HYDROCODON-ACE1 EAC2 PO; +KEFLEX500 MG PO; +LIPITOR40 MG PO
[2018-11-13 19:13] LABS: T4 THYROXINE 8.7 ug/dL (4.7-13.3); THYROID STIMULATING HORMONE 1.11 uIU/mL (0.36-3.74)
== END | disposition home or self-care (01) ==
LOC: D.LABREF 14:36
PROVIDERS: ATTEND Orthopaedic Surgery
DX: E03.9 Hypothyroidism, unspecified (principal)

== ENCOUNTER → 2018-11-14 15:48 | Outpatient (CLI) | payer MEDICARE ==
[2018-08-27 11:52] VITALS: BMI 24.6
== END | disposition home or self-care (01) ==
LOC: D.MRI 15:48
PROVIDERS: ATTEND Orthopaedic Surgery
DX: M54.16 Radiculopathy, lumbar region (principal)